=== PATIENT | female | born 1940 | race Caucasian/White ===

== ENCOUNTER → 2018-11-06 | Outpatient (CLI) | payer OTHER | LOC: M.RAD 09:51 | DX: Z12.31 Encounter for screening mammogram for malignant neoplasm of breast (principal) ==

== ENCOUNTER → 2020-06-24 | Outpatient (CLI) | payer OTHER | LOC: M.RAD 08:38 | PROVIDERS: ATTEND Family Medicine | DX: Z12.31 Encounter for screening mammogram for malignant neoplasm of breast (principal); M81.0 Age-related osteoporosis without current pathological fracture ==

== ENCOUNTER 2021-04-10 11:45 | Emergency (ER) | payer OTHER ==
[~2021-04-10] VITALS: Ht 165.1 cm; Wt 64.0 kg
[2021-04-10] MEDS ORDERED: LISINOPRIL5 MG PO (13:04)
[2021-04-10] MEDS ORDERED: TAPAZOLE5 MG PO (13:04)
[2021-04-10] MEDS ORDERED: MIRAPEX0.125 MG PO (13:04)
[2021-04-10] MEDS ORDERED: OMEPRAZOLE 20 M20 M1 PO (13:04)
[2021-04-10] MEDS ORDERED: METFORMIN HCL500 M3 PO (13:04)
[2021-04-10] MEDS ORDERED: MYRBETRIQ25 MG PO (13:05)
[2021-04-10] MEDS ORDERED: LIPITOR 40 MG T40 M1 PO (13:05)
[2021-04-10] MEDS ORDERED: VAZALORE81 MG PO (13:05)
[2021-04-10] MEDS ORDERED: IRON18 M1 PO (13:06)
[2021-04-10] MEDS ORDERED: AREDS (13:06)
[2021-04-10] MEDS ORDERED: VITAMIN C500 M2 PO (13:07)
[2021-04-10] MEDS ORDERED: VITAMIN B-125000 MCG PO (13:07)
[2021-04-10] MEDS ORDERED: VITAMIN E1000 UNIT PO (13:08)
[2021-04-10] MEDS ORDERED: VITAMIN D310 MC3 PO (13:08)
[2021-04-10 15:23] LABS: URINE BILIRUBIN NEGATIVE (Negative); URINE BLOOD NEGATIVE (Negative); URINE CLARITY CLEAR; URINE COLOR YELLOW; URINE GLUCOSE-RANDOM NEGATIVE (Negative); URINE KETONES NEGATIVE (Negative); URINE LEUKOCYTES-REFLEX 1+ (Negative); URINE NITRITE-REFLEX NEGATIVE (Negative); URINE PROTEIN TRACE (Negative); URINE SPECIFIC GRAVITY 1.025 (1.005-1.030); URINE UROBILINOGEN 0.2 E.U./dl (0.2-1.0)
[2021-04-10 15:28] LABS: ABSOLUTE LYMPHOCYTES 0.7 thou/uL (0.8-5.3); ABSOLUTE MONOCYTES 0.4 thou/uL (0.0-1.2); ABSOLUTE NEUTROPHILS 2.5 thou/uL (1.6-8.1); BASOPHILS 0.6 %; EOSINOPHILS 0.2 %; HEMOGLOBIN 12.2 gm/dL (12.0-15.0); MCH 28.5 pg (26.0-34.0); MCHC 32.9 g/dL (28.0-37.0); MCV 86.6 fL (80.0-100.0); MONOCYTES 10.5 %; MPV 8.4 fl. (7.2-11.1); NUCLEATED RBCS 0 /100WBC; PLATELET COUNT* 198 thou/uL (150-400); POLYS 68.7 %; RBC 4.27 mil/uL (4.20-5.00); RDW-CV 14.1 % (10.5-14.5); WBC 3.7 thou/uL (4.0-11.0)
[2021-04-10 15:31] LABS: HYALINE CASTS 0-3 Few /LPF (None Seen); SQUAMOUS >10 Many /LPF (0-3)
[2021-04-10 15:32] LABS: CRYSTALS None Seen /LPF (None Seen); URINE RBC 0-2 Rare /HPF (0-2); URINE WBC-REFLEX >25 Many /HPF (0-5)
[2021-04-10 15:33] LABS: BACTERIA-REFLEX 1-9 Few /HPF (None Seen)
[2021-04-10 15:34] LABS: MUCUS 0-3 Light strn/LPF (None Seen)
[2021-04-10 15:38] LABS: CALCIUM 8.3 mg/dL (8.5-10.1); POTASSIUM 4.1 mmol/L (3.5-5.1)
[2021-04-10 15:42] LABS: ALBUMIN 3.9 g/dL (3.4-5.0); TOTAL BILIRUBIN 0.3 mg/dL (<0.1-1.0); TOTAL PROTEIN 7.7 g/dL (6.4-8.2)
[2021-04-10] MEDS ORDERED: FLEXERIL PO (16:12)
[2021-04-10] MEDS ORDERED: TESSALON PERLE100 MG PO (16:12)
[2021-04-10] MEDS ORDERED: CEPHALEXIN500 MG PO (16:12)
[2021-04-10] MEDS ORDERED: ZOFRAN ODT4 MG DISSOLVE (16:12)
[2021-04-10 16:42] VITALS: BP 140/65
--- NOTE | 2021-04-11 10:50 | EKG ---
[place] [address] ELECTROCARDIOGRAM REPORT Name: ABNER NEVAREZ Room: [facility]#: [id number] Admission: 04/10/21 Attend Phys: Discharge: 04/10/21 Date of : 40 Date of Service: 04/10/211539 Report #: [id number] THIS REPORT FOR: //name// [facility] ED Test Date: 2021-04-10 Test Time: 15:40:04 Pat Name: ABNER NEVAREZ Department: Room: Gender: F Transportation Driver: [place] : 1940 Requested By: Bear Hammond Order Number: [id number] MD: Júnior Wilson Measurements Intervals [place] Rate: 100 P: 70 RI: 152 QRS: 57 QRSD: 101 T: 57 QT: 332 QTc: 429 Interpretive Statements Sinus tachycardia No previous ECG available for comparison Electronically Signed On 04-11-2021 10:50:33 CDT by Júnior Wilson [email or web address] <ELECTRONICALLY SIGNED> By: Júnior Wilson MD, [facility] 04/11/21 1050 [id number] Júnior Wilson MD, FACC /EPI
== END 2021-04-10 16:42 | disposition home or self-care (01) ==
LOC: M.ERS 11:45
PROVIDERS: Emergency Medicine Emergency Medical Services
DX: U07.1 COVID-19 (principal); N39.0 Urinary tract infection, site not specified; E11.9 Type 2 diabetes mellitus without complications; K21.9 Gastro-esophageal reflux disease without esophagitis; I10 Essential (primary) hypertension; Z86.73 Personal history of transient ischemic attack (TIA), and cerebral infarction without residual deficits; Z79.899 Other long term (current) drug therapy